=== PATIENT | female | born 1970 | race Caucasian/White ===

== ENCOUNTER 2021-06-12 13:51 | Outpatient (CLI) | payer OTHER | END 2021-06-12 13:52 | disposition home or self-care (01) | LOC: BICMAMMO 13:51 | PROVIDERS: ATTEND Internal Medicine Rheumatology | DX: M81.0 Age-related osteoporosis without current pathological fracture (principal); M47.814 Spondylosis without myelopathy or radiculopathy, thoracic region | CPT/HCPCS: 72072; 77080 ==

== ENCOUNTER 2023-07-16 10:08 | Outpatient (CLI) | payer BC | END 2023-07-16 10:09 | disposition home or self-care (01) | LOC: BICMAMMO 10:08 | PROVIDERS: ATTEND Internal Medicine Rheumatology | DX: M81.0 Age-related osteoporosis without current pathological fracture (principal); M85.88 Other specified disorders of bone density and structure, other site | CPT/HCPCS: 77080 ==